=== PATIENT | female | born 2000 | race Native Hawaiian/Other Pacific Islander ===

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

== ENCOUNTER 2022-10-01 12:38 | Emergency (ER) | payer OTHER ==
[~2022-10-01] VITALS: Ht 165.1 cm; Wt 68.0 kg
[2022-10-01 12:46] VITALS: BP 143/80; TEMP 99
== END 2022-10-01 13:40 | disposition home or self-care (01) ==
LOC: ED 12:38
DX: K08.89 Other specified disorders of teeth and supporting structures (principal)
CPT/HCPCS: 99283

== ENCOUNTER 2023-01-17 16:45 | Emergency (ER) | payer OTHER ==
[~2023-01-17] VITALS: Ht 165.1 cm; Wt 49.9 kg
[2023-01-17 16:53] VITALS: BP 114/64; TEMP 98.7
== END 2023-01-17 18:20 | disposition home or self-care (01) ==
LOC: ED 16:45
DX: N92.1 Excessive and frequent menstruation with irregular cycle (principal)
CPT/HCPCS: 81000; 81025; 96372; 99283; J1885